=== PATIENT | male | born 1965 | race Caucasian/White ===

== ENCOUNTER 2021-01-06 14:15 | Emergency (ER) | payer OTHER ==
--- OUTSIDE RECORDS SUMMARY | 2021-01-06 14:18 | XMS REPORT | Continuity of Care Document ---
:1965 Author Organization [facility] t Address [address] [place] [address] Care Team Providers Name Role Phone Trent Maguire MD Attending Clinician Doctor Unassigned, Name Attending Clinician Unavailable Aron CORONADO Attending Clinician Unavailable Vladimir CHINCHILLA Attending Clinician Rafi Chiu MD Attending Clinician Fellow Attending Clinician Unavailable Da Perez DO Attending Clinician Problems This patient has no known problems. Allergies, Adverse Reactions, Alerts This patient has no known allergies or adverse reactions. Medications This patient has no known medications. Procedures This patient has no known procedures. Encounters Start End Encounter Admission Attending Care Care Encounter Source Date/Time Date/Time Type Type Clinicians Facility Department ID 2021-01-01 2021-01-01 Emergency [facility] [id number] 02:25:00 05:39:00 Sury Rosales [id number] [place] 4.2.7.2.686 [place] [id number] 2021-01-01 2021-01-01 Orders Doctor PRUETT [id number] 00:00:00 00:00:00 Only UnaTOYA gore 350.1.13.10 [place] [facility] [id number] [id number] 2020-12-19 2020-12-19 Case Lennie Sharp [id number] 00:00:00 00:00:00 Management Galina Kent [id number] [place] 4.2.7.2.686 [id number] 2020-12-14 2020-12-14 Emergency [facility] [id number] 14:00:00 16:36:00 Kelli Rosales 350.1.13.10 [place] 4.2.7.2.686 [place] [id number] 2020-12-14 2020-12-14 Orders Doctor FLYNN 1.2.840.114 [id number] 00:00:00 00:00:00 Only Unassigned, TOYA 350.1.13.10 [place] [facility] 4.2.7.2.686 [id number] 2020-12-14 2020-12-14 Telephone ChiuFernandez sanchez 1.2.840.114 [id number] 00:00:00 00:00:00 Y Pediatric 350.1.13.10 s and 4.2.7.2.686 Adult [id number] [facility] 2020-12-13 2020-12-13 Orders Doctor PRUETT 1.2.840.114 [id number] 00:00:00 00:00:00 Only Unassigned, TOYA 350.1.13.10 [place] [facility] 4.2.7.2.686 [id number] 2020-11-30 2020-11-30 Telephone Fellow, [facility] 1.2.840.114 [id number] 00:00:00 00:00:00 Pulmonary [facility] 350.1.13.10 [facility] 42.7.2.686 [id number] 2020-11-13 2020-11-13 Telephone ChiuFernandez sanchez 1.2.840.114 [id number] 00:00:00 00:00:00 Y Pediatric 350.1.13.10 s and 4.2.7.2.686 Adult [id number] [facility] 2020-11-09 2020-11-09 Orders Doctor FLYNN 1.2.840.114 [id number] 00:00:00 00:00:00 Only Unassigned, TOYA 350.1.13.10 [place] [facility] 4.2.7.2.686 [id number] 2020-10-29 2020-10-29 Orders Doctor FLYNN 1.2.840.114 [id number] 00:00:00 00:00:00 Only Unassigned, TOYA 350.1.13.10 [place] [facility] 4.2.7.2.686 [id number] 2020-10-17 2020-10-17 Patient VINCE Perez 1.2.840.114 [id number] 00:00:00 00:00:00 Outreach [facility] 350.1.13.10 [facility] 4.2.7.2.686 [place] [id number] 2020-09-13 2020-09-13 Office ChiuFernandez sanchez 1.2.840.114 [id number] 10:09:41 11:38:06 Visit Y Pediatric 350.1.13.10 s and 4.2.7.2.686 Adult [id number] [facility] Results This patient has no known results.
[2021-01-06 15:59] LABS: Absolute Lymphocytes (CBC) 1.2 K/uL (0.7-4.9); Basophils % 0.5 % (0-1.3); Hematocrit 45.6 % (39.6-49.0); Lymphocytes % 11.8 % (15.3-44.8); MPV 8.8 fL (7.6-11.3); RBC Red Blood Cell Count 4.98 M/uL (4.33-5.43)
[2021-01-06 16:11] LABS: Potassium 4.1 mmol/L (3.5-5.1); Uric Acid 5.6 mg/dL (3.5-7.2)
--- NOTE | 2021-01-06 16:16 | RAD REPORT ---
EXAM DESCRIPTION: RAD - Foot Right 3 View - 01/06/2021 4:08 pm CLINICAL HISTORY: foot injury Trauma, pain COMPARISON: FOOT W OBLIQUES dated 02/20/2011 FINDINGS: No acute fracture or dislocation seen. Moderate posterior and plantar calcaneal spurs.
[2021-01-06] MEDS ORDERED: MORPHINE 4 MG/ML SYR ONE (16:23)
[2021-01-06] MEDS ORDERED: ONDANSETRON 4 MG/2 ML VIAL ONE (16:23)
--- NOTE | 2021-01-06 16:43 | EDPHYS ---
Physician Documentation [facility] Name: Wilman Massey Age: 55 yrs Sex: Male : 1965 Arrival Date: 01/06/2021 Time: 14:19 Bed 24 Private MD: ED Physician Kumar Acosta HPI: 01/06 15:12 This 55 yrs old Male presents to ER via Wheelchair with complaints of Ankle jmm Injury. 15:12 The patient presents with an injury, pain. Onset: The symptoms/episode began/occurred jmm acutely, 1 week(s) ago. Associated signs and symptoms: Pertinent positives: pain, swelling. The patient presents with an injury, pain. This is a 55 year old male with a history of copd, htn, chf, dm that presents to the ED with complaints of right foot pain beginning after tripping. Initial xrays negative. Patient complains of ongoing pain. Patient does have a history of gout. . Historical: - Allergies: 14:29 No Known Allergies; aa5 - PMHx: 14:29 Hypertension; COPD; CHF; Heart Disease; aa5 14:30 Diabetes - IDDM; Gout; aa5 - Immunization history:: Adult Immunizations unknown. - Social history:: Smoking status: Patient denies any tobacco usage or history of. ROS: 15:12 Constitutional: Negative for fever, chills, and weight loss, Cardiovascular: Negative jmm for chest pain, palpitations, and edema, Respiratory: Negative for shortness of breath, cough, wheezing, and pleuritic chest pain. 15:12 MS/extremity: Positive for injury or acute deformity, pain. 15:12 All other systems are negative. Exam: 15:12 Constitutional: This is a well developed, well nourished patient who is awake, alert, jmm and in no acute distress. Head/Face: atraumatic. Eyes: EOMI, no conjunctival erythema appreciated ENT: Moist Mucus Membranes Neck: Trachea midline, Supple Chest/axilla: Normal chest wall appearance and motion. Cardiovascular: Regular rate and rhythm. No edema appreciated Respiratory: Normal respirations, no respiratory distress appreciated Abdomen/GI: Non distended, soft Back: Normal ROM Skin: General appearance color normal 15:12 Musculoskeletal/extremity: right foot is diffusely ttp, compartments are soft, full dorsalis pulse, erythema not noted to the foot. . 15:12 Skin: Appearance: Color: normal in color. 15:12 Neuro: Orientation: is normal, Mentation: is normal, Memory: is normal. 15:12 Psych: Behavior/mood is pleasant, cooperative. Vital Signs: 14:27 BP 179 / 115; Pulse 99; Resp 18 S; Temp 97.4(TE); Pulse Ox 97% on R/A; Weight 102.06 kg aa5 (R); Height 5 ft. 8 in. (172.72 cm) (R); 15:57 BP 137 / 123; Pulse 80; Resp 16; Pulse Ox 97% on R/A; zb 16:46 BP 177 / 127; Pulse 78; Resp 18; Pulse Ox 93% on R/A; zb 14:27 Body Mass Index 34.21 (102.06 kg, 172.72 cm) aa5 MDM: 15:12 Patient medically screened. teresita 16:40 Data reviewed: vital signs, nurses notes. Counseling: I had a detailed discussion with kleber the patient and/or guardian regarding: the historical points, exam findings, and any diagnostic results supporting the discharge/admit diagnosis, lab results, radiology results, the need for outpatient follow up, to return to the emergency department if symptoms worsen or persist or if there are any questions or concerns that arise at home. ED course: Xray negative. patient advised to follow up with foot and ankle surgery. Patient given strict return precautions. Patient understood and agrees with the plan of care. . 01/06 15:24 Order name: CBC with Diff; Complete Time: 16:21 [facility] 01/06 15:24 Order name: BMP; Complete Time: 16:21 [facility] 01/06 15:24 Order name: Foot Right 3 View XRAY; Complete Time: 16:21 [facility] 01/06 15:24 Order name: Uric Acid; Complete Time: 16:21 [facility] 01/06 15:24 Order name: Saline Lock; Complete Time: 15:57 [facility] 01/06 16:36 Order name: Yang wrap-joint; Complete Time: 17:06 [facility] 01/06 16:36 Order name: Crutches; Complete Time: 17:06 [facility] Administered Medications: 16:10 Drug: morphine 4 mg {Note: RASS 0.} Route: IVP; Site: right forearm; zb 16:45 Follow up: Response: No adverse reaction; Marked relief of symptoms; Pain is decreased; zb RASS: Alert and Calm (0) 16:10 Drug: Zofran (Ondansetron) 4 mg Route: IVP; Site: right antecubital; zb 16:45 Follow up: Response: No adverse reaction; Marked relief of symptoms zb 17:00 Drug: Ketorolac 30 mg Route: IVP; Site: right forearm; zb 17:04 Follow up: Response: No adverse reaction zb Disposition: 01/06/21 16:42 Discharged to Home. Impression: Pain in right foot. - Condition is Stable. - Discharge Instructions: Foot Pain. - Prescriptions for Ibuprofen 800 mg Oral Tablet - take 1 tablet by ORAL route every 12 hours As needed take with food; 20 tablet. Zanaflex 4 mg Oral Tablet - take 1 tablet by ORAL route every 8 hours As needed; 20 tablet. - Medication Reconciliation Form, Thank You Letter, Antibiotic Education, Prescription Opioid Use form. - Follow up: Von Doe DPM; When: 2 - 3 days; Reason: Recheck today's complaints, Continuance of care, Re-evaluation by your physician. Addendum: 01/09/2021 07:41 Co-signature as Attending Physician, Kumar Acosta MD I agree with the assessment and c forbes plan of care. Signatures: Dispatcher [employer] Kumar Mcwilliams MD MD cha Mickail, Joel, PA PA jmm Calderon, Audri, RN RN aa5 Mary Qureshi RN RN zb Corrections: (The following items were deleted from the chart) 01/06 17:08 16:42 01/06/2021 16:42 Discharged to Home. Impression: Pain in right foot. Condition is zb Stable. Forms are Medication Reconciliation Form, Thank You Letter, Antibiotic Education, Prescription Opioid Use. Follow up: Dr. Von Doe; When: 2 - 3 days; Reason: Recheck today's complaints, Continuance of care, Re-evaluation by your physician. kleber
--- NOTE | 2021-01-06 16:43 | ER ---
Nurse's Notes [facility] Name: Wilman Massey Age: 55 yrs Sex: Male : 1965 Arrival Date: 01/06/2021 Time: 14:19 Bed 24 Private MD: Diagnosis: Pain in right foot Presentation: 01/06 14:27 Chief complaint: Patient states: "I tripped walking my dog about a week ago and hurt my aa5 right foot". Pt reports being seen at [place] [facility] and dx with sprain of right foot. Pt reports hx of gout, reports pain feels different. Coronavirus screen: At this time, the client does not indicate any symptoms associated with coronavirus-19. Ebola Screen: Patient negative for fever greater than or equal to 101.5 degrees Fahrenheit, and additional compatible Ebola Virus Disease symptoms. Initial Sepsis Screen: Does the patient meet any 2 criteria? No. Patient's initial sepsis screen is negative. Does the patient have a suspected source of infection? No. Patient's initial sepsis screen is negative. Risk Assessment: Do you want to hurt yourself or someone else? Patient reports no desire to harm self or others. Onset of symptoms was January 2021. 14:27 Method Of Arrival: Wheelchair aa5 14:27 Acuity: JACKSON 3 aa5 Historical: - Allergies: 14:29 No Known Allergies; aa5 - PMHx: 14:29 Hypertension; COPD; CHF; Heart Disease; aa5 14:30 Diabetes - IDDM; Gout; aa5 - Immunization history:: Adult Immunizations unknown. - Social history:: Smoking status: Patient denies any tobacco usage or history of. Screenin:17 Abuse screen: Denies threats or abuse. Denies injuries from another. Nutritional zb screening: No deficits noted. Tuberculosis screening: No symptoms or risk factors identified. Fall Risk None identified. Assessment: 15:30 General: Appears in no apparent distress. uncomfortable, Behavior is calm, cooperative, zb anxious. Pain: Complains of pain in anterior aspect of right ankle and dorsum of right foot Pain does not radiate. Pain currently is 8 out of 10 on a pain scale. at worst was 10 out of 10 on a pain scale. Quality of pain is described as aching, pressure, tender, Pain began couple days ago. Neuro: Level of Consciousness is awake, alert, obeys commands, Oriented to person, place, time, situation. Cardiovascular: Patient's skin is warm and dry. Respiratory: Airway is patent Respiratory effort is even, unlabored, Respiratory pattern is regular, symmetrical. Derm: Skin is normal. Musculoskeletal: Range of motion: limited in right ankle Swelling present in right foot. 16:46 Reassessment: Patient appears in no apparent distress at this time. Patient and/or zb family updated on plan of care and expected duration. Pain level reassessed. Patient is alert, oriented x 3, equal unlabored respirations, skin warm/dry/pink. pain decreased /. 17:06 Reassessment: d/c instructions given. patient wheeled out. chester wrapped applied to zb affected foot. Crutch instructions given. no c/o at this time. notified ECP of blood pressure no medications ordered at this time. Vital Signs: 14:27 BP 179 / 115; Pulse 99; Resp 18 S; Temp 97.4(TE); Pulse Ox 97% on R/A; Weight 102.06 kg aa5 (R); Height 5 ft. 8 in. (172.72 cm) (R); 15:57 BP 137 / 123; Pulse 80; Resp 16; Pulse Ox 97% on R/A; zb 16:46 BP 177 / 127; Pulse 78; Resp 18; Pulse Ox 93% on R/A; zb 14:27 Body Mass Index 34.21 (102.06 kg, 172.72 cm) aa5 ED Course: 14:19 Patient arrived in ED. mr 14:27 Arm band placed on. aa5 14:28 Triage completed. aa5 15:00 Donald Prescott PA is PHCP. [facility] 15:00 Kumar Acosta MD is Attending Physician. [facility] 15:16 Mary Qureshi RN is Primary Nurse. zb 15:17 Patient has correct armband on for positive identification. Bed in low position. Call zb light in reach. Side rails up X 1. Pulse ox on. NIBP on. 15:30 Inserted saline lock: 22 gauge in right forearm, using aseptic technique. Blood zb collected. Missed attempt(s): 20 gauge in right antecubital area. 16:08 Foot Right 3 View XRAY In Process Unspecified. EDMS 16:42 Vno Doe DPM is Referral Physician. [facility] 17:07 No provider procedures requiring assistance completed. IV discontinued, intact, zb bleeding controlled, No redness/swelling at site. Pressure dressing applied. Administered Medications: 16:10 Drug: morphine 4 mg {Note: RASS 0.} Route: IVP; Site: right forearm; zb 16:45 Follow up: Response: No adverse reaction; Marked relief of symptoms; Pain is decreased; zb RASS: Alert and Calm (0) 16:10 Drug: Zofran (Ondansetron) 4 mg Route: IVP; Site: right antecubital; zb 16:45 Follow up: Response: No adverse reaction; Marked relief of symptoms zb 17:00 Drug: Ketorolac 30 mg Route: IVP; Site: right forearm; zb 17:04 Follow up: Response: No adverse reaction zb Outcome: 16:42 Discharge ordered by MD. [facility] 17:07 Discharged to home ambulatory, via wheelchair, with crutches, with family. zb 17:07 Condition: stable 17:07 Discharge instructions given to patient, family, Instructed on discharge instructions, follow up and referral plans. medication usage, crutch walking, Demonstrated understanding of instructions, follow-up care, medications, crutch walking, Prescriptions given X 2. 17:08 Patient left the ED. zb Signatures: Dispatcher [employer] EDPA Donald Prescott PA PA jmm Rivera, Mary mr RamírezAdrianna, RN RN Mary Espinal RN AMELIA zrehan
[2021-01-06 17:17] VITALS: TEMP 97.4
[2021-01-06 17:19] VITALS: BP 177/127; O2SAT 93
[2021-01-06] MEDS ORDERED: KETOROLAC 30 MG/ML INJ ONE (17:20)
== END 2021-01-06 17:08 | disposition home or self-care (01) ==
LOC: ER 14:15
DX: M79.671 Pain in right foot (principal); I10 Essential (primary) hypertension
CPT/HCPCS: 85025; 80048; 36415; 84550; 73630; 99284; J2405